=== PATIENT | female | born 1970 | race Caucasian/White ===

== ENCOUNTER 2018-04-03 06:27 | Day surgery (SDC) | payer BC ==
--- OUTSIDE RECORDS SUMMARY | 2018-04-03 06:30 | XMS REPORT | Clinical Summary ---
:1970 Author Organization [facility] Address [address] [place] [address] Care Team Providers Name Role Phone Catarino Maldonado MD Primary Care Provider Allergies Not on File Medications Medication Sig Dispensed Refills Start Date End Date Status buPROPion XL Take 150 mg by 2 09/03/2017 Active (WELLBUTRIN XL) 150 MG mouth daily. 24 hr tablet FLUoxetine (PROzac) 20 Take 1 capsule by 0 09/27/1998 Active MG capsule mouth. lisinopril Take 5 mg by mouth 2 09/23/2017 Active (PRINIVIL,ZESTRIL) 5 daily. mg tablet XARELTO 20 mg tablet Take 20 mg by 5 08/09/2017 Active mouth daily. with food topiramate (TOPAMAX) Take 50 mg by 2 09/03/2017 Active 50 MG tablet mouth nightly. traMADol (ULTRAM) 50 Take 1 tablet by 0 04/29/2012 Active mg tablet mouth. Active Problems Problem Noted Date Chest pain 10/01/2017 SOB (shortness of breath) 10/01/2017 Essential hypertension 10/01/2017 Abnormal EKG 10/01/2017 Encounters Date Type Specialty Care Team Description 11/13/2017 Transcribe Orders Access Cassandra Angeles Chronic deep vein thrombosis (DVT) of other vein of left lower extremity (Primary Dx) 11/05/2017 Telephone Cardiology Donovan Preciado MD 10/01/2017 Office Visit Cardiology Donovan Preciado MD Chest pain, unspecified type (Primary Dx); SOB (shortness of breath); Essential hypertension; Abnormal EKG after 04/02/2017 Family History Medical History Relation Name Comments Cancer Father Bebeto Mann Prostate Diabetes Father Bebeto Mann Insulin/Diet controlled Osteoporosis Mother Mary Alicearchana Mann Relation Name Status Comments Father Bebeto Mann Mother Mary Alice Mann Social History Tobacco Use Types Packs/Day Years Used Date Heavy Tobacco Smoker Cigarettes 2 10 09/28/1983 - 10/27/1997 Smokeless Tobacco: Never Used Alcohol Use Drinks/Week oz/Week Comments No Sex Assigned at Date Recorded Not on file Job Start Date Occupation Industry Not on file Not on file Not on file Travel History Travel Start Travel End No recent travel history available. Last Filed Vital Signs Vital Sign Reading Time Taken Blood Pressure 129/76 10/01/2017 8:22 AM CDT Pulse 69 10/01/2017 8:22 AM CDT Temperature - - Respiratory Rate - - Oxygen Saturation - - Inhaled Oxygen Concentration - - Weight 103 kg (228 lb) 10/01/2017 8:22 AM CDT Height 175.3 cm (5' 9") 10/01/2017 8:22 AM CDT Body Mass Index 33.67 10/01/2017 8:22 AM CDT Plan of Treatment Health Maintenance Due Date Last Done Comments CERVICAL CANCER SCREENING 1991 INFLUENZA VACCINE 11/27/2017 HEPATITIS B VACCINES Aged Out No longer eligible based on patient's age to complete this topic IPV VACCINES Aged Out No longer eligible based on patient's age to complete this topic MENINGOCOCCAL VACCINE Aged Out No longer eligible based on patient's age to complete this topic Procedures Procedure Name Priority Date/Time Associated Diagnosis Comments ECG 12-LEAD Routine 10/01/2017 7:25 AM Chest pain, Results for this CDT unspecified type procedure are in SOB (shortness of the results breath) section. after 04/02/2017 Results ECG 12 lead (10/01/2017 7:25 AM CDT) Ventricular rate 62 [facility] Atrial rate 62 [facility] OH interval 170 [facility] QRSD interval 102 [facility] QT interval 426 [facility] QTC interval 432 [facility] P axis 1 48 [facility] QRS axis 1 32 [facility] T wave axis -6 [facility] EKG impression Normal sinus rhythm-Nonspecific T wave [facility] abnormality-Abnormal ECG-No previous ECGs available- Performing Organization Address City/State/Zipcode Phone Number [facility] [address] [place] [address] after 04/02/2017 Insurance Payer Benefit Plan / Group Subscriber ID Type Phone Address BCBS BCBS CHOICE PPO/FEDERAL EMPL PPO xxxxxxxxxxxx PPO Advance Directives Patient has advance care planning documents on file. For more information, please contact:Shin [id number] [place] [address]
[2018-04-03] MEDS ORDERED: Ringers Lactate 1,000 ML IV ONE (06:51)
[2018-04-03] MEDS ORDERED: LIDOCAINE 1% MPF 5 ML VIAL ONE (06:52)
[2018-04-03 07:02] LABS: Specific Gravity 1.015 (1.005-1.030)
[2018-04-03] MEDS ORDERED: FENTANYL CITR 100 MCG/2 ML ONE (07:07)
[2018-04-03] MEDS ORDERED: PROPOFOL 200 MG/20 ML VIAL IV ONE (07:08)
[2018-04-03] MEDS ORDERED: MIDAZOLAM HCL 2 MG/2 ML INJ ONE (07:08)
[2018-04-03] MEDS ORDERED: LIDOCAINE 1% MPF 2 ML AMPULE ONE (07:09)
[2018-04-03] MEDS ORDERED: EPHEDRINE SULF 50 MG/10 ML SYR ONE (07:57)
[2018-04-03] MEDS: MEPERIDINE HCL 50 MG/ML AMP ONE ×2 (08:26→08:32)
--- NOTE | 2018-04-03 09:09 | RAD REPORT ---
EXAM DESCRIPTION: US - Ultrasound Intraop - 04/03/2018 8:23 am CLINICAL HISTORY: Pelvic pain COMPARISON: None. FINDINGS: Limited intraoperative sonography was performed during ultrasound assisted intraoperative hysteroscop y and D&C. No suspicious or unexpected findings. Exam was performed with the ordering physician.
[2018-04-03 09:19] VITALS: BP 112/59; TEMP 97; O2SAT 98
--- NOTE | 2018-04-03 18:49 | OP ---
Date of Procedure: 04/03/2018 Surgeon: Nancy Willard MD Preoperative Diagnoses: Pelvic pain, status post endometrial ablation. 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 Postoperative Diagnoses: Pelvic pain, status post endometrial ablation. 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 Anesthesia: General endotracheal. Procedures Performed: Hysteroscopy with Symphion and intraoperative ultrasound guided lysis of adhes ions and dilatation and curettage. Specimens: Endometrial curettings. Complications: No complications. Drains: None. Condition: The patient's condition is stable. Indications: The patient is a 48-year-old lady who has a complex surgical history and underwent a No vaSure endometrial ablation for heavy menstrual bleeding in 2004, then she had bowel resection, appen dectomy, and tubal surgery. All these after since her ablation, she has complete secondary amenorrhe a. However, recently she has increasing lower abdominal pelvic pain. On transvaginal ultrasound, th ere was an echogenic area in the top of her endometrial canal suspicious for either a polypoid mass o r a retained clot (hematometra). So, in order to see the potential for drainage of the hematometra a nd/or sampling of the endometrial cavity or polyp, consented her for a diagnostic hysteroscopy with t he ultrasound guided entry into the canal for cavity evaluation and drainage and possible sampling. So, given the patient's complex surgical history and medical history, she is a high risk for a hyster ectomy, so it was very important for us to make sure that there was no cancer or any smaller procedur e that could resolve her pain. Description Of Procedure: After informed consent was verified, the patient was brought to the OR. S CDs were started on the patient. She stopped her anticoagulant 36 hours prior to the procedure. She was placed in a supine fashion on the operating table after anesthesia was given, she was placed in a dorsal lithotomy position using Shade stirrups. Pelvic exam was performed. Uterus found to be ant eflexed. The intraoperative ultrasound was started. Uterine fundus was identified in the sagittal a nd transverse planes and the endometrial canal was lined up with the cervical canal. So, this could visualize the instruments coming in. Speculum was placed to expose the cervix, anterior lip grasped with 2 Allis clamps. Prep x3 with Bet adine was done. Then, using the Symphion hysteroscope at 0 degree lens after priming the machine and normal saline for distention medium, the cervical canal was entered after dilating it to 14 Swazi. After passing the cervical canal into the top half of it, needed further dilations. The scope was r emoved. Further dilation was performed. A single-tooth tenaculum was placed on the anterior lip so that it does not slip. Once I came to the internal os, it was difficult to continue the hysteroscopy with a Symphion scope, which was about 14 mm. So, changed the scope to a SlimLine diagnostic hyster oscope and this allowed me to get in through the internal os. Once the endometrial canal was entered under ultrasound guidance, I kept dissecting with the tip so that the adhesions could be traversed w ith a goal of reaching the echogenic material at the top of the endometrial canal. Once this was sherice ched, there was a cavity up there, maybe about 1-1/2 to 2 cm in length in the sagittal plane. Both t ubal ostia were well visualized. There were dense synechiae present here as well. However, there wa s active endometrium that was visualized. After taking pictures, scope was removed. A 0 curette was used to obtain endometrial sample from the endometrium in the top part of the canal. Once adequate sampling was performed, all the instruments were removed. Instrument, needle, and sponge counts were done and were correct at the end of the case. The tissue was sent for permanent pathology. She was recovered from anesthesia in the OR and taken to PACU in a stable condition. Bleeding was minimal. Instrument, needle, and sponge counts were correct. She has an appointment to follow up with me in 1 week for review of pathology results. She will restart her anticoagulant tomorrow evening as directed by her test inspection engineer. ELMO/MANAS Voice ID: [id number] Report ID: [id number]
== END 2018-04-03 09:50 | disposition home or self-care (01) ==
LOC: OR 06:27
PROVIDERS: ATTEND Obstetrics & Gynecology
PROC: BU46ZZZ Ultrasonography of Uterus (ICD-10-PCS; 2018-04-03)
PROC: 0UDB8ZX Extraction of Endometrium, Via Natural or Artificial Opening Endoscopic, Diagnostic (ICD-10-PCS; principal; 2018-04-03 07:30)
DX: N85.6 Intrauterine synechiae (principal); R10.2 Pelvic and perineal pain; N91.1 Secondary amenorrhea; D68.51 Activated protein C resistance; Z86.718 Personal history of other venous thrombosis and embolism; M19.90 Unspecified osteoarthritis, unspecified site; F32.9 Major depressive disorder, single episode, unspecified; I10 Essential (primary) hypertension; Z79.01 Long term (current) use of anticoagulants; Z79.899 Other long term (current) drug therapy; Z79.1 Long term (current) use of non-steroidal anti-inflammatories (NSAID)
CPT/HCPCS: 76998; 81025; 88305; J2001; J2175; J2250; J2704; J3010